=== PATIENT | female | born 1990 | race Hispanic/Latino ===

== ENCOUNTER 2023-05-31 00:07 | Emergency (ER) | payer OTHER ==
--- OUTSIDE RECORDS SUMMARY | 2023-05-31 00:10 | XMS REPORT | Continuity of Care Document ---
:1990 Author Organization [facility] t Address [address] [facility] [address] [place] [id number] Care Team Providers Name Role Phone Asked, No Pcp Primary Care Physician Unavailable MONIE GREEN Attending Clinician Unavailable HARVINDER MACK Attending Clinician Unavailable SHELLIE MACK Attending Clinician Unavailable Luke Patel DO Attending Clinician JAQUAN WHITMAN Attending Clinician Unavailable Doctor Unassigned, [place] Attending Clinician Unavailable Pob1, Acute Care Clinic Attending Clinician Unavailable Rozina Hand Attending Clinician HARVINDER MACK Admitting Clinician Unavailable Payers Payer Name Policy Type Policy Number Effective Date Expiration Date S ource Problems Condition Condition Condition Status Onset Resolution Last Treating Co mments Source Name Details Category Date Date Treatment Clinician Date No known No known Disease Unive rs active active ity of problems problems [place] [facility] Allergies, Adverse Reactions, Alerts Allergy Allergy Status Severity Reaction(s) Onset Inactive Treating Comm ents Source Name Type Date Date Clinician Ibuprofe Propensi Active Itching 2016-07 Unive rs n ty to 07-15 ity of adverse 00:00: [place] reaction 00 Medical s Branch IBUPROFE DRUG Active ITCHING 2016-07 Univers N INGREDI 07-15 ity of 00:00: [place] 00 Medical [place] Social History Social Habit Start Date Stop Date Quantity Comments Source Exposure to Not sure University of SARS-CoV-2 (event) [facility] Sexual orientation Method [facility] Tobacco use and 2020-01-07 2020-01-07 Never used Universit y of exposure 00:00:00 00:00:00 [facility] Sex Ass[birth year] At [birth year] [facility] 00:00:00 00:00:00 Smoking Status Start Date Stop Date Source Tobacco smoking consumption Meth [facility] unknown Never smoker [facility] Medical Branch Medications Ordered Filled Start Stop Current Ordering Indication Dosage Frequency Signature Comments Components Source Medication Medication Date Date Medication? Clinician (SIG) Name Name LEVOTHYROXI Yes Take by Uni vers NE SODIUM 7-01 mouth. ity of (LEVOTHYROX 21:33: [place] INE ORAL) 00 Medical Branch LEVOTHYROXI Yes Take by Uni vers NE SODIUM 7-01 mouth. ity of (LEVOTHYROX 21:33: [place] INE ORAL) 00 Medical Branch LEVOTHYROXI Yes Take by Uni vers NE SODIUM 7-01 mouth. ity of (LEVOTHYROX 21:33: [place] INE ORAL) 00 Medical Branch allopurinol Yes 100mg Take 1 Uni vers 100 mg 1-08 tablet by ity of tablet 00:00: mouth [place] 00 daily. Medical Branch allopurinol Yes 100mg Take 1 Uni vers 100 mg 1-08 tablet by ity of tablet 00:00: mouth [place] 00 daily. Medical Branch allopurinol Yes 100mg Take 1 Uni vers 100 mg 1-08 tablet by ity of tablet 00:00: mouth [place] 00 daily. Medical Branch acetaminoph 2016-07 Yes 1{tbl} Take 1 Un shahriar en-codeine 1-07 tablet by ity of (TYLENOL-CO 00:00: mouth [place] DEINE #3) 00 every 4 Medical 300-30 mg (four) Branch tablet hours as needed for Pain (scale 7-10). tamsulosin 2016-07 Yes .4mg Take 1 Unive rs 0.4 mg 24 1-07 capsule by ity of hr capsule 00:00: mouth at [place] as 00 bedtime. Medical Branch metoclopram 2016-07 Yes 10mg Take 1 Univ ers marisol HCl 10 1-07 tablet by ity of mg tablet 00:00: mouth [place] 00 every 6 Medical (six) Branch hours. traMADOL 2016-07 Yes 50mg Take 1 Univers (ULTRAM) 50 1-07 tablet by ity of mg tablet 00:00: mouth [place] 00 every 6 Medical (six) Branch hours as needed for Pain (scale 7-10). acetaminoph 2017-1 Yes 1{tbl} Take 1 Un shahriar en-codeine 1-07 tablet by ity of (TYLENOL-CO 00:00: mouth [place] DEINE #3) 00 every 4 Medical 300-30 mg (four) Branch tablet hours as needed for Pain (scale 7-10). tamsulosin 2016-07 Yes .4mg Take 1 Unive rs 0.4 mg 24 1-07 capsule by ity of hr capsule 00:00: mouth at [place] as 00 bedtime. Medical Branch metoclopram 2016-07 Yes 10mg Take 1 Univ ers marisol HCl 10 1-07 tablet by ity of mg tablet 00:00: mouth [place] 00 every 6 Medical (six) Branch hours. traMADOL 2016-07 Yes 50mg Take 1 Univers (ULTRAM) 50 1-07 tablet by ity of mg tablet 00:00: mouth [place] 00 every 6 Medical (six) Branch hours as needed for Pain (scale 7-10). acetaminoph 2016-07 Yes 1{tbl} Take 1 Un shahriar en-codeine 1-07 tablet by ity of (TYLENOL-CO 00:00: mouth [place] DEINE #3) 00 every 4 Medical 300-30 mg (four) Branch tablet hours as needed for Pain (scale 7-10). tamsulosin 2016-07 Yes .4mg Take 1 Unive rs 0.4 mg 24 1-07 capsule by ity of hr capsule 00:00: mouth at [place] as 00 bedtime. Medical Branch metoclopram 2016-07 Yes 10mg Take 1 Univ ers marisol HCl 10 1-07 tablet by ity of mg tablet 00:00: mouth [place] 00 every 6 Medical (six) Branch hours. traMADOL 2016-07 Yes 50mg Take 1 Univers (ULTRAM) 50 1-07 tablet by ity of mg tablet 00:00: mouth [place] 00 every 6 Medical (six) Branch hours as needed for Pain (scale 7-10). Immunizations Ordered Filled Date Status Comments Source Immunization Name Immunization Name Influenza Virus 2019-05-08 Completed Universit y of Vaccine 00:00:00 [facility] Influenza Virus 2019-05-08 Completed Universit y of Vaccine 00:00:00 [facility] Influenza Virus 2019-05-08 Completed Universit y of Vaccine 00:00:00 [facility] PFIZER COVID-19 Unknown Completed [facility] PFIZER COVID-19 Unknown Completed [facility] PFIZER COVID-19 Unknown Completed [facility] Influenza, Unknown Completed [facility] Quadrivalent, Preservative Free Vital Signs Vital Name Observation Time Observation Value Comments Source Systolic blood 2020-01-07 21:33:00 118 mm[Hg] Univer sity of pressure [facility] Diastolic blood 2020-01-07 21:33:00 77 mm[Hg] Unive rsity of [facility] Heart rate 2020-01-07 21:33:00 101 /min [facility] Body temperature 2020-01-07 21:33:00 36.67 Tami [facility] Res[facility] rate 2020-01-07 21:33:00 18 /min [facility] Body height 2020-01-07 21:33:00 160 cm [facility] Body weight 2020-01-07 21:33:00 99.338 kg [facility] BMI 2020-01-07 21:33:00 38.79 kg/m2 [facility] Oxygen saturation in 2020-01-07 21:33:00 99 /min [facility] Arterial blood by [facility] Pulse oximetry Branch Procedures Procedure Date / Time Performed Performing Clinician [facility] e CONSENT/REFUSAL FOR 2020-05-05 10:07:17 Doctor Unassigned, No Un [facility] DIAGNOSIS AND Name [facility] TREATMENT Plan of Care Planned Activity Planned Date Details Comments Source Future Scheduled 2023-05-05 Screening for [facility] Test 13:02:45 malignant neoplasm of cervix (procedure) [code = 390892060] Future Scheduled 2023-05-05 COVID-19 VACCINE (4 [facility] Test 13:02:45 - season) [code = COVID-19 VACCINE (4 - season)] Future Scheduled 2023-05-05 INFLUENZA VACCINE [facility] Test 13:02:45 (#1) [code = INFLUENZA VACCINE (#1)] Future Scheduled 2023-05-05 [facility] Test 13:02:45 screening (procedure) [code = 311170945] Encounters Start End Encounter Admission Attending Care Care Encounter Source Date/Time Date/Time Type Type Clinicians Facility Department ID 2021-08-24 2021-08-24 Outpatient BOCIRNEA, [facility] [id number] [place] 00:00:00 00:00:00 MONIE 104 Metho di 2021-06-30 2021-06-30 Outpatient [facility] [id number] [place] 00:00:00 00:00:[address] 2021-06-29 2021-06-29 Outpatient [facility] [id number] [place] 00:00:00 00:00:00 313 Method i 2021-01-12 2021-01-12 Outpatient FREDERICK, [facility] [id number] [place] 00:00:00 00:00:00 SHELLIE 261 Method i 2020-09-28 2020-09-28 Patient Jorge [facility] [id number] Univers 00:00:00 00:00:00 Outreach Luke SCHROEDER [id number] i ty of Navdeep [facility] [id number] [place] ARAIZA [id number] Al dical 388 [place] 2020-05-21 2020-05-21 Outpatient [facility] [id number] [place] 00:00:00 00:00:00 744 Method i 2020-05-05 2020-05-05 Outpatient R ANTONETTE [facility] [id number] Univers 07:45:00 07:45:00 JAQUAN ity of [place] [facility] 2020-05-05 2020-05-05 Orders Doctor STEPHANI [id number] Univers 00:00:00 00:00:00 Only Unassigned, KARRIE [id number] ity of [place] [facility] [id number] [place] [phone] [place] [id number] Branch 2020-01-07 2020-01-07 Urgent Pob1, Acute Care Clinic [facility] [id number]. [id number] Univers 16:16:53 16:36:53 Care [place] [id number] ity of [place] [id number] [place] [phone] Al dical nal 044 Branch Office Building One 2020-01-07 2020-01-[address] [facility] [id number] Univers 16:20:00 16:20:00 ity of [place] [facility] Results Test Description Test Time Test Comments Results Result Comments Source SARS-CoV-2 (COVID-19) RNA [Presence] in Respiratory sp ecimen by 2021-01-12 13:04:51 DWIGHT with probe detection Test Item Value Reference Range Interpretation Comme nts SARS-CoV-2 (COVID-19) RNA [Presence] in Respiratory Not detected No t-Detected specimen by DWIGHT with probe detection (test code = 70044-6) Whether patient is employed in a healthcare setting (test code = 74862-1) Whether the patient has symptoms related to condition of interest (test code = 06081-7) Patient was hospitalized because of this condition (test code = 19011-4) Whether the patient was admitted to intensive care unit (ICU) for condition of interest (test code = 75364-5) Whether patient resides in a congregate care setting (test code = 64977-8) RED WALLER
--- NOTE | 2023-05-31 00:15 | EDPHYS ---
Physician Documentation [facility] Name: Estefany Gonzales Age: 32 yrs Sex: Female : 1990 Arrival Date: 05/31/2023 Time: 00:07 Bed IW4 Private MD: ED Physician Juan Nicole HPI: 05/31 00:27 This 32 yrs old Female presents to ER via Unassigned with complaints of kb Employee Exposure. 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 Came in to get prophylactic antibiotic.. Historical: - Allergies: 00:44 No Known Allergies; jb4 - Immunization history:: Adult Immunizations up to date. - Social history:: Smoking status: Patient denies any tobacco usage or history of. ROS: 00:27 Constitutional: Negative for fever, chills, and weight loss, kb 00:27 All other systems are negative, Exam: 00:27 Constitutional: This is a well developed, well nourished patient who is awake, alert, kb and in no acute distress. Head/Face: Normocephalic, atraumatic. ENT: Moist Mucous membranes Respiratory: Respirations even and unlabored. No increased work of breathing. Talking in full sentences Skin: Warm, dry with normal turgor. Normal color. MS/ Extremity: Pulses equal, no cyanosis. Neurovascular intact. Full, normal range of motion. Neuro: Awake and alert, GCS 15, oriented to person, place, time, and situation. Moves all extremities. Normal gait. Vital Signs: 00:42 BP 140 / 93; Pulse 105; Resp 16; Temp 97.3(O); Pulse Ox 100% on R/A; jb4 MDM: 00:13 Patient medically screened. kb 00:27 Data reviewed: vital signs, nurses notes. Counseling: I had a detailed discussion with kb the patient and/or guardian regarding the historical points, exam findings, and any diagnostic results supporting the discharge/admit diagnosis, the need for outpatient follow up, a family practitioner, to return to the emergency department if symptoms worsen or persist or if there are any questions or concerns that arise at home. Administered Medications: 00:58 Drug: Ciprofloxacin PO 1 grams PO once Route: PO; cg 00:58 Follow up: Response: No adverse reaction cg Disposition: 06:01 Co-signature as Attending Physician, Juan Nicole MD I agree with the assessment sp4 and plan of care. I reviewed the patient's care provided by Advanced Practice Provider \T\ agree w/ the diagnosis \T\ care plan. I personally saw the pt \T\ performed a substantive portion of the visit, incldng all aspects of the (History/Exam/Medical Decision Making). Disposition Summary: 05/31/23 00:14 Discharge Ordered Notes: Location: Home kb Condition: Stable kb Diagnosis - Exposure to bacterial meningitis kb Followup: kb - With: Emergency Department - When: As needed - Reason: Worsening of condition Followup: kb - With: Private Physician - When: 2 - 3 days - Reason: Recheck today's complaints, Continuance of care, Re-evaluation by your physician Forms: - Medication Reconciliation Form kb - Thank You Letter kb - Antibiotic Education kb - Prescription Opioid Use kb - Patient Portal Instructions kb - Leadership Thank You Letter kb Signatures: Brenda Schmidt, MARLENE-C MARLENE-Mattie Weaver, DICK RN Maxwell Baeza RN RN jb4 Juan Nicole MD MD sp4
[2023-05-31] MEDS ORDERED: CIPROFLOXACIN HCL 500 MG TAB ONE (01:00)
--- NOTE | 2023-05-31 01:00 | ER ---
Nurse's Notes [facility] Name: Estefany Gonzales Age: 32 yrs Sex: Female : 1990 Arrival Date: 05/31/2023 Time: 00:07 Bed IW4 Private MD: Diagnosis: Exposure to bacterial meningitis Presentation: 05/31 00:42 Chief complaint: Patient states: Exposed to pt with Bacterial Meningitis. Coronavirus jb4 screen: At this time, the client does not indicate any symptoms associated with coronavirus-19. Ebola Screen: No symptoms or risks identified at this time. Initial Sepsis Screen: Does the patient meet any 2 criteria? HR > 90 bpm. Yes Does the patient have a suspected source of infection? No. Patient's initial sepsis screen is negative. Risk Assessment: Do you want to hurt yourself or someone else? Patient reports no desire to harm self or others. Onset of symptoms was May 31, 2023. Transition of care: patient was not received from another setting of care. 00:42 Method Of Arrival: Ambulatory jb4 00:42 Acuity: RUEL 5 jb4 Triage Assessment: 00:58 General: Appears in no apparent distress. comfortable, Behavior is calm, cooperative. cg Neuro: No deficits noted. Level of Consciousness is awake, alert, obeys commands, Oriented to person, place, time, situation. Historical: - Allergies: 00:44 No Known Allergies; jb4 - Immunization history:: Adult Immunizations up to date. - Social history:: Smoking status: Patient denies any tobacco usage or history of. Screenin:44 [facility] ED Fall Risk Assessment (Adult) History of falling in the last 3 months, jb4 including since admission No falls in past 3 months (0 pts) Confusion or Disorientation No (0 pts). Abuse screen: Denies threats or abuse. Nutritional screening: No deficits noted. Tuberculosis screening: No symptoms or risk factors identified. Assessment: 00:44 General: Appears in no apparent distress. comfortable, Behavior is calm, cooperative, jb4 appropriate for age. Pain: Denies pain. Neuro: Level of Consciousness is awake, alert, obeys commands, Oriented to person, place, time, situation. Cardiovascular: Patient's skin is warm and dry. Respiratory: Airway is patent Respiratory effort is even, Respiratory pattern is regular, symmetrical. GI: No signs and/or symptoms were reported involving the gastrointestinal system. : No signs and/or symptoms were reported regarding the genitourinary system. EENT: No signs and/or symptoms were reported regarding the EENT system. Derm: Skin is intact, Skin is pink, warm \T\ dry. Musculoskeletal: Circulation, motion, and sensation intact. Range of motion: intact in all extremities. Vital Signs: 00:42 BP 140 / 93; Pulse 105; Resp 16; Temp 97.3(O); Pulse Ox 100% on R/A; jb4 ED Course: 00:12 Patient arrived in ED. jj6 00:13 Brenda Schmidt FNP-C [facility]. juan jose 00:13 Juan Nicole MD is Attending Physician. juan jose 00:42 Maxwell Rodriguez, RN is Primary Nurse. jb4 00:44 Triage completed. jb4 00:44 Arm band placed on right wrist. jb4 00:44 Patient has correct armband on for positive identification. Bed in low position. Call jb4 light in reach. Side rails up X 1. 00:44 No provider procedures requiring assistance completed. Patient did not have IV access jb4 during this emergency room visit. 00:59 Provided Education on: na. cg Administered Medications: 00:58 Drug: Ciprofloxacin PO 1 grams PO once Route: PO; cg 00:58 Follow up: Response: No adverse reaction cg Medication: 00:59 VIS not applicable for this client. cg Outcome: 00:14 Discharge ordered by MD. kb 00:44 Discharged to home ambulatory, jb4 00:44 Condition: stable 00:44 Discharge instructions given to patient, Instructed on discharge instructions, follow up and referral plans. Demonstrated understanding of instructions, follow-up care, 00:59 Patient left the ED. cg Signatures: Brenda Schmidt FNP-C FNP-Ckb Garcia, Cindy, RN RN cg Bryson, James, RN RN jb Candace Govea jj6
[2023-05-31 01:25] VITALS: BP 140/93; TEMP 97.3; O2SAT 100
== END 2023-05-31 00:59 | disposition home or self-care (01) ==
LOC: ER 00:07
DX: Z20.811 Contact with and (suspected) exposure to meningococcus (principal)
CPT/HCPCS: 99283

== ENCOUNTER 2024-12-03 07:51 | Day surgery (SDC) | payer BC ==
[2024-11-28 08:24] LABS: Absolute Eosinophils 0.2 K/uL (0-0.5); Absolute Lymphocytes (CBC) 2.2 K/uL (0.7-4.9); Absolute Monocytes 0.5 K/uL (0.1-1.3); Absolute Neutrophil 4.7 K/uL (1.8-8.0); Basophils % 0.4 % (0-1.3); Hematocrit 41.5 % (36.0-45.0); Hemoglobin 13.9 g/dL (12.0-15.0); Lymphocytes % 28.3 % (15.3-44.8); MCH 30.1 pg (27.0-35.0); MCHC 33.4 g/dL (32.0-36.0); MCV 90.1 fL (80-100); MPV 8.6 fL (7.6-11.3); Monocytes % 6.5 % (3.3-12.3); Neutrophils % 61.8 % (41.7-73.7); Platelets 274 thou/uL (152-406); Red Cell Distribution Width 13.8 % (12.1-15.2)
[2024-11-28 08:31] LABS: PT Prothrombin Time 11.6 SECONDS (10-13.0); PTT, Activated Partial Thromb 33.4 SECONDS (27.2-37.4); Protime INR 1.02
[2024-11-28 08:39] LABS: Anion Gap 7.2 mEq/L (5.0-15.0); Potassium 4.2 mEq/L (3.5-5.1)
--- NOTE | 2024-11-28 08:53 | RAD REPORT ---
EXAM: Chest Pa And Lat (2 Views) HISTORY: 34 years Female pre op for day surgery COMPARISON: 12/20/2016 FINDINGS: LUNGS/PLEURA: The lungs are clear. No pleural effusions or pneumothorax. No pulmonary edema. Eventrat ion of the right diaphragm. CARDIAC/MEDIASTINUM: The cardiac silhouette is within normal limits. UPPER ABDOMEN: No significant abnormality. BONES: No acute abnormality. LINES/TUBES/OTHER: N/A IMPRESSION: No evidence of acute cardiopulmonary disease.
--- NOTE | 2024-12-02 12:31 | EKG ---
Test Date: 2024-11-28 Test Time: 08:11:15 Board Layer: SWETA MEASUREMENT RESULTS: Intervals: Rate: 79 GA: 134 QRSD: 90 QT: 350 QTc: 401 [place]: P: 41 GA: 134 QRS: 45 T: 42 INTERPRETIVE STATEMENTS: Normal sinus rhythm with sinus arrhythmia Normal ECG No previous ECG available for comparison Electronically Signed On 12-02-24 12:24:17 CDT by Kuldeep Salinas
[2024-12-03] MEDS: Ringers Lactate 1,000 ML IV ONE (08:25)
[2024-12-03] MEDS ORDERED: ONDANSETRON 4 MG/2 ML VIAL ONE (08:41)
[2024-12-03] MEDS ORDERED: FENTANYL CITR 100 MCG/2 ML ONE ×2 (08:41→13:09)
[2024-12-03] MEDS ORDERED: LIDOCAINE 2% MPF 5 ML VIAL ONE (08:41)
[2024-12-03] MEDS ORDERED: propofoL 200 MG/20 ML VIAL IV ONE (08:41)
[2024-12-03] MEDS ORDERED: MIDAZOLAM HCL 2 MG/2 ML INJ ONE ×2 (08:42→08:45)
[2024-12-03] MEDS ORDERED: DEXMEDETOMIDINE HCL 200 MCG/2 ML VIAL ONE (08:46)
[2024-12-03] MEDS ORDERED: MAGNESIUM SULFATE 1 gm IVPB 1 GM/100 ML BAG IV ONE (08:47)
[2024-12-03] MEDS ORDERED: dexAMETHasone 10 MG/ML VIAL ONE ×2 (08:53→11:36)
[2024-12-03] MEDS ORDERED: LIDOCAINE 1% MPF 5 ML VIAL ONE (08:53)
[2024-12-03] MEDS ORDERED: EPINEPHRINE 1 MG/ML VIAL ONE (08:53)
[2024-12-03] MEDS: CEFAZOLIN SODIUM 2 GM/VIAL ONE (11:32)
[2024-12-03] MEDS ORDERED: KETAMINE HCL IN 0.9 % NACL 50 MG/5 ML SYRINGE IV ONE (11:38)
[2024-12-03] MEDS: MEPERIDINE HCL 25 MG/ML SYR ONE (11:49)
[2024-12-03] MEDS ORDERED: SUCCINYLCHOLINE 20 MG/ML (10 ML) IV ONE (13:03)
[2024-12-03] MEDS ORDERED: KETOROLAC 30 MG/ML INJ ONE (13:14)
--- NOTE | 2024-12-03 13:58 | P.BOP ---
Preoperative diagnosis: Left knee ACL tear, lateral meniscus tear Postoperative diagnosis: Same Primary procedure: Left knee arthroscopic ACL reconstruction with Achilles allograft Secondary procedure: Left knee arthroscopic lateral meniscus repair Head Counselor: NONE,NONE Estimated blood loss: 5 cc Specimen: None Findings: See dictation Anesthesia: General Implants: 8 x 20, 10x20 mm Arthrex BioScrew, 4.75 mm swivel lock; 2- FastFix sutures Fluids & blood products: per anesthesia record Transferred to: Recovery Room Condition: Good
[2024-12-03] MEDS: HYDROMORPHONE HCL 1 MG/ML INJ ONE (14:15)
[2024-12-03] MEDS: FENTANYL CITR 100 MCG/2 ML ONE (14:23)
--- NOTE | 2024-12-03 14:35 | RAD REPORT ---
EXAM: Knee Left 2 View INDICATION: S/P L ACLR W.ACHILLES ALLOGRAFT, LMR COMPARISON: MRI 11/14/2024 FINDINGS: No acute fracture. Surgical changes from ACL repair. Small knee effusion. Minimal patellofemoral compartment spurring. Other: N/A IMPRESSION: No acute osseous abnormality involving the imaged knee.
[2024-12-03] MEDS ORDERED: HYDROMORPHONE HCL 1 MG/ML INJ ONE (14:42)
[2024-12-03] MEDS: Ringers Lactate 500 ML IV ONE (15:01)
[2024-12-03 15:42] VITALS: BP 120/68; TEMP 97.6; O2SAT 96
== END 2024-12-03 15:45 | disposition home or self-care (01) ==
LOC: OR 07:51
PROVIDERS: ATTEND Orthopaedic Surgery Sports Medicine
PROC: 0MRP4KZ Replacement of Left Knee Bursa and Ligament with Nonautologous Tissue Substitute, Percutaneous Endoscopic Approach (ICD-10-PCS; principal; 2024-12-03 10:15)
DX: S83.282A Other tear of lateral meniscus, current injury, left knee, initial encounter (principal); S83.242A Other tear of medial meniscus, current injury, left knee, initial encounter; S83.512A Sprain of anterior cruciate ligament of left knee, initial encounter; M25.562 Pain in left knee
CPT/HCPCS: 93005; 85025; 80048; 36415; 85610; 85730; 71046; 73560; 29888; 29882; J3490; J3475; J2704; J2003 ×2; J2250 ×2; J3010 ×3; J1100 ×2; J2175; J0171; J1171; J2405; J7120